=== PATIENT | female | born 1980 | race Caucasian/White ===

== ENCOUNTER 2021-02-08 07:24 | Outpatient (CLI) | payer OTHER ==
--- NOTE | 2021-02-08 10:01 | Ultrasound Report ---
PROCEDURE: Duplex Ext Veins Bilateral INDICATIONS: DEBORAH FINK TECHNIQUE: Real-time imaging, as well as color and pulse Doppler interrogation, were performed of the deep veins of both legs from the inguinal ligament to the popliteal fossa. COMPARISON: None. FINDINGS: The deep veins are normally compressible, and free of intraluminal thrombus. Color and pu lse Doppler demonstrate normal phasic intravascular flow. There is normal augmentation response to d istal compression maneuver. IMPRESSION: No evidence of deep venous thrombosis. Reviewed by: Toby Connell MD on 02/08/2021 9:59 AM PDT Approved by: Toby Connell MD on 02/08/2021 9:59 AM PDT Station ID: [id number]
== END 2021-02-08 07:25 | disposition home or self-care (01) ==
LOC: DI 07:24
PROVIDERS: ATTEND Family Medicine
DX: I83.93 Asymptomatic varicose veins of bilateral lower extremities (principal)
CPT/HCPCS: 93970